=== PATIENT | female | born 1955 | race Caucasian/White ===

== ENCOUNTER → 2016-11-13 | Outpatient (CLI) | payer BC ==
[2016-11-13 08:07] LABS: Basophils # (A) 0.1 k/uL (0-0.2); Basophils % (A) 1 %; CH 30.9; Eosinophils # (A) 0.2 k/uL (0-0.7); Eosinophils % (A) 2 %; HCT 43.1 % (34.0-46.0); HDW 2.75; HGB 14.7 gm/dL (11.4-16.0); Luc # (Auto) 0.23; Luc % (Auto) 3; Lymphocytes # (A) 2.1 k/uL (1.0-4.8); Lymphocytes % (A) 28 %; MCH 30.3 pg (25.0-35.0); MCHC 34.2 g/dL (31.0-37.0); MCV 88.5 fL (80.0-100.0); Mean Platelet Volume 6.8; Monocytes # (A) 0.5 k/uL (0-1.0); Monocytes % (A) 6 %; Neutrophils # (A) 4.5 k/uL (1.3-7.7); Neutrophils % (A) 59 %; RBC 4.87 m/uL (3.80-5.40); RDW 12.9 % (11.5-15.5); WBC 7.6 k/uL (3.8-10.6); WBC (Perox) 7.68
[2016-11-13 08:43] LABS: ALT 59 U/L (9-52); AST 38 U/L (14-36); Alkaline Phosphatase 61 U/L (38-126); Anion Gap 13 mmol/L; Blood Urea Nitrogen 11 mg/dL (7-17); Calcium 9.9 mg/dL (8.4-10.2); Carbon Dioxide 27 mmol/L (22-30); Chloride 103 mmol/L (98-107); Cholesterol 198 mg/dL (<200); Glucose 107 mg/dL (74-99); HDL Cholesterol 70 mg/dL (40-60); Non-African American GFR(MDRD) >60 (>60 ml/min/1.73 sqM); Potassium 4.2 mmol/L (3.5-5.1); Sodium 143 mmol/L (137-145); Total Bilirubin 0.8 mg/dL (0.2-1.3); Total Protein 7.7 g/dL (6.3-8.2); Triglycerides 139 mg/dL (<150)
[2016-11-13 09:24] LABS: Hepatitis C Virus IgG Ab Negative (Negative); Hepatitis C Virus IgG Index 0.03
== END | disposition home or self-care (01) ==
LOC: LABWHC1 07:19
PROVIDERS: ATTEND Internal Medicine
DX: E78.5 Hyperlipidemia, unspecified (principal); E55.9 Vitamin D deficiency, unspecified; I10 Essential (primary) hypertension; Z13.9 Encounter for screening, unspecified
CPT/HCPCS: 36415; 80053; 80061; 82306; 85025; 86803

== ENCOUNTER → 2018-06-20 | Outpatient (CLI) | payer BC ==
--- NOTE | 2018-06-27 08:12 | MM ---
Reason for exam: screening (asymptomatic). Last mammogram was performed 2 years and 3 months ago. History: Patient is postmenopausal. Taking estrogen for 18 years 10 months. MG 3D Screening Mammo W/Cad Bilateral CC and MLO view(s) were taken. Prior study comparison: March 06, 2016, bilateral MG screening mammo w CAD. June 17, 2014, bilateral MG screening mammo w CAD. There are scattered fibroglandular densities. No suspicious abnormality. ASSESSMENT: Negative, BI-RAD 1 RECOMMENDATION: Routine screening mammogram of both breasts in 1 year.
== END | disposition home or self-care (01) ==
LOC: RADMAMWWP 07:06
PROVIDERS: ATTEND Internal Medicine
DX: Z12.31 Encounter for screening mammogram for malignant neoplasm of breast (principal)
CPT/HCPCS: 77063; 77067

== ENCOUNTER 2019-02-24 18:51 | Emergency (ER) | payer OTHER, BC ==
[2019-02-24 19:29] VITALS: BP 178/89; PULSE 77; RESP 18; TEMP 98.2
--- NOTE | 2019-02-24 19:44 | XR ---
EXAMINATION TYPE: XR hand complete LT DATE OF EXAM: 02/24/2019 COMPARISON: NONE HISTORY: Pain TECHNIQUE: 3 views FINDINGS: There is narrowing and spurring at the first carpometacarpal joint. IP joint spaces are renetta rly normal. There is no subluxation. There are no erosions. 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 No fracture seen. No sign of inflammato ry arthritis.
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
== END 2019-02-24 20:20 | disposition home or self-care (01) ==
LOC: EC 18:51
DX: S60.012A Contusion of left thumb without damage to nail, initial encounter (principal); M19.042 Primary osteoarthritis, left hand; Z91.09 Other allergy status, other than to drugs and biological substances; V89.2XXA Person injured in unspecified motor-vehicle accident, traffic, initial encounter; Y92.410 Unspecified street and highway as the place of occurrence of the external cause
CPT/HCPCS: 99284

== ENCOUNTER 2019-05-22 21:23 | Emergency (ER) | payer OTHER, BC ==
[2019-05-22 21:30] VITALS: BP 178/106; PULSE 85; RESP 16; TEMP 97.7
--- NOTE | 2019-05-22 22:06 | XR ---
EXAMINATION TYPE: XR cervical spine comp DATE OF EXAM: 05/22/2019 COMPARISON: NONE HISTORY: Neck pain TECHNIQUE: 5 views FINDINGS: There is anterior and posterior fusion surgery at C4 and C5 and C6 and C7. Vertebra have no rmal alignment. There are no cervical ribs. Skull base is intact. Atlantoaxial facet joint is intact. There is probably an old chip fracture of the spinous process of C7. IMPRESSION: Multilevel fusion surgery. No acute fracture seen.
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
--- NOTE | 2019-05-22 22:14 | XR ---
EXAMINATION TYPE: XR elbow complete RT DATE OF EXAM: 05/22/2019 COMPARISON: NONE HISTORY: Pain TECHNIQUE: 3 views FINDINGS: I see no fracture nor dislocation. Elbow joint spaces are normal. There is no sign of elbow joint effusion. IMPRESSION: Negative right elbow exam. No fracture.
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
== END 2019-05-22 22:32 | disposition home or self-care (01) ==
LOC: EC 21:23
DX: M54.2 Cervicalgia (principal); M79.645 Pain in left finger(s); M25.521 Pain in right elbow; Z91.048 Other nonmedicinal substance allergy status; Z98.890 Other specified postprocedural states; V59.49XA Driver of pick-up truck or van injured in collision with other motor vehicles in traffic accident, initial encounter; Y93.89 Activity, other specified; Y92.410 Unspecified street and highway as the place of occurrence of the external cause
CPT/HCPCS: 72050; 99284

== ENCOUNTER → 2019-11-13 | Outpatient (CLI) | payer BC ==
--- NOTE | 2019-11-17 11:24 | MM ---
Reason for exam: screening (asymptomatic). Last mammogram was performed 1 year and 5 months ago. History: Patient is postmenopausal. Taking estrogen for 20 years 10 months. Physical Findings: A clinical breast exam by your physician is recommended on an annual basis and results should be correlated with mammographic findings. MG 3D Screening Mammo W/Cad Bilateral CC and MLO view(s) were taken. Prior study comparison: June 20, 2018, bilateral MG 3d screening mammo w/cad. March 06, 2016, bilateral MG screening mammo w CAD. There are scattered fibroglandular densities. No suspicious abnormality. Left medial asymmetry appears similar to 2016 exam. ASSESSMENT: Benign, BI-RAD 2 RECOMMENDATION: Routine screening mammogram of both breasts in 1 year.
== END | disposition home or self-care (01) ==
LOC: RADMAMWWP 07:11
PROVIDERS: ATTEND Family Medicine
DX: Z12.31 Encounter for screening mammogram for malignant neoplasm of breast (principal)
CPT/HCPCS: 77063; 77067

== ENCOUNTER → 2021-02-20 | Outpatient (CLI) | payer BC ==
--- NOTE | 2021-02-22 09:09 | MM ---
Reason for exam: screening (asymptomatic). Last mammogram was performed 1 year and 3 months ago. History: Patient is postmenopausal. Took hormonal contraceptives for 12 years. Taking estrogen for 20 years 10 months. Physical Findings: A clinical breast exam by your physician is recommended on an annual basis and results should be correlated with mammographic findings. MG 3D Screening Mammo W/Cad Bilateral CC and MLO view(s) were taken. Prior study comparison: November 13, 2019, bilateral MG 3d screening mammo w/cad. June 20, 2018, bilateral MG 3d screening mammo w/cad. March 06, 2016, bilateral MG screening mammo w CAD. There are scattered fibroglandular densities. No significant changes when compared with prior studies. ASSESSMENT: Benign, BI-RAD 2 RECOMMENDATION: Routine screening mammogram of both breasts in 1 year.
== END | disposition home or self-care (01) ==
LOC: RADMAMWWP 07:39
PROVIDERS: ATTEND Family Medicine
DX: Z12.31 Encounter for screening mammogram for malignant neoplasm of breast (principal)
CPT/HCPCS: 77063; 77067

== ENCOUNTER → 2023-04-11 | Outpatient (CLI) | payer MEDICARE ==
[2023-04-11 12:22] LABS: INR 0.9 (<1.2); Partial Thromboplastin Time 25.6 sec (22.0-30.0); Prothrombin Time 10.1 sec (10.0-12.5)
[2023-04-11 16:21] LABS: ALT 24 U/L (8-44); AST 17 U/L (13-35); Albumin 4.5 d/dL (3.8-4.9); Albumin/Globulin Ratio 1.73 Ratio (1.60-3.17); Alkaline Phosphatase 62 U/L (41-126); Appearance,Urine Clear (Clear); BUN/Creat Ratio 15.29 Ratio (12.00-20.00); Bilirubin,Urine Negative (Negative); Blood Urea Nitrogen 10.7 mg/dL (9.0-27.0); Blood,Urine Negative (Negative); Calcium 10.3 mg/dL (8.7-10.3); Carbon Dioxide 27.5 mmol/L (21.6-31.8); Chloride 101 mmol/L (96-109); Color,Urine Yellow (Yellow); Globulin 2.6 d/dL (1.6-3.3); Glucose 91 mg/dL (70-110); Ketones,Urine Negative (Negative); Nitrite,Urine Negative (Negative); PH, Urine 7.5; Potassium 4.1 mmol/L (3.5-5.5); Sodium 139 mmol/L (135-145); Total Bilirubin 0.6 mg/dL (0.3-1.2); Total Protein 7.1 d/dL (6.2-8.2); Urobilinogen,Urine 0.2 E.U./DL
[2023-04-11 17:16] LABS: HCT 42.7 % (37.2-46.3); HGB 14.2 d/dL (12.0-15.0); MCH 30.3 pg (27.0-32.0); MCHC 33.3 d/dL (32.0-37.0); MCV 91.2 FL (80.0-97.0); Mean Platelet Volume 9.4 FL (9.5-12.2); NRBC Per 100 WBC 0 X 10*3/uL (0.00-0.01); Platelet Count 351 X 10*3/uL (140-440); RBC 4.68 X 10*6/uL (4.10-5.20); RDW 12.5 % (11.5-14.5); WBC 8.92 X 10*3/uL (4.50-10.00)
== END | disposition home or self-care (01) ==
LOC: LABPAT 11:21
PROVIDERS: ATTEND Orthopaedic Surgery
DX: Z01.812 Encounter for preprocedural laboratory examination (principal)
CPT/HCPCS: 80053; 81003; 85027; 85610; 85730; 86850; 86900; 86901; 87070

== ENCOUNTER 2023-04-22 05:35 | Observation (INO) | payer MEDICARE ==
[2023-04-19 10:51] VITALS: BMI 33.8
[~2023-04-22 05:35] MED LIST: ACETAMINOPHEN TAB 500 MG TAB PO PRN; GABAPENTIN 300 MG CAP PO PRN; MELOXICAM 7.5 MG TAB PO PRN; TRANEXAMIC 1,000 MG/100ML-NACL 1,000 MG in SALINE 1 100ML.BAG IVPB PRN
[2023-04-22] MEDS ORDERED: LACTATED RINGERS 1,000 ML IV ONE ×2 (06:22→08:00)
[2023-04-22] MEDS ORDERED: MIDAZOLAM 2 MG/2 ML VIAL IVP ONE (06:49)
[2023-04-22] MEDS ORDERED: fentaNYL (PF) 50 MCG/ML 2 ML AMP IVP ONE (06:49)
[2023-04-22] MEDS ORDERED: fentaNYL (PF) 50 MCG/ML 2 ML AMP ONE (06:57)
[2023-04-22] MEDS ORDERED: MIDAZOLAM 2 MG/2 ML VIAL ONE (06:57)
[2023-04-22] MEDS ORDERED: PHENYLEPHRINE 10 MG/ML 5 ML VIAL ONE (06:57)
[2023-04-22] MEDS ORDERED: LIDOCAINE 1% INJ 10MG/ML (20 ML MDV) ONE (06:57)
[2023-04-22] MEDS ORDERED: TRANEXAMIC 1,000 MG/100ML-NACL PREMIX BAG ONE (06:57)
[2023-04-22] MEDS ORDERED: ROPIVACAINE 5 MG/ML 30 ML VIAL ONE (06:57)
[2023-04-22] MEDS ORDERED: ePHEDrine 50 MG/ML 1 ML VIAL ONE (06:57)
[2023-04-22] MEDS ORDERED: PROPOFOL 10 MG/ML 20 ML VIAL IV ONE (06:57)
[2023-04-22] MEDS ORDERED: ceFAZolin 1,000 MG in SODIUM CHLORIDE 0.9% 1,000 ML IRRIGATION ONE (07:00)
[2023-04-22] MEDS ORDERED: ROPIVACAINE 5 MG/ML 30 ML VIAL MISCELLANE ONE ×2 (07:18→08:09)
[2023-04-22] MEDS ORDERED: droPERidol 5 MG/2 ML VIAL IVP ONE (07:40)
[2023-04-22] MEDS ORDERED: HYDROmorphone 0.5 MG/0.5 ML SYRINGE IVP PRN ×3 (07:40→08:45)
[2023-04-22] MEDS ORDERED: ONDANSETRON 4 MG/2 ML VIAL IVP ONE (07:40)
[2023-04-22] MEDS ORDERED: LIDOCAINE 1% (10MG/ML) FOR IV START INTRADERMA PRN (07:40)
--- NOTE | 2023-04-22 08:35 | XR ---
EXAMINATION TYPE: XR Hip Limited LT DATE OF EXAM: 04/22/2023 COMPARISON: NONE HISTORY: Postop TECHNIQUE: 4 view submitted. FINDINGS: There is postsurgical change compatible with left hip replacement surgery. IMPRESSION: 1. Postoperative change.
--- NOTE | 2023-04-22 08:37 | FL ---
EXAMINATION TYPE: FL guidance operating room DATE OF EXAM: 04/22/2023 HISTORY: Fluoroscopy time Total dose area product (DAP) in uGy*m?, mGy*cm? (or similar): 2.7707 IMPRESSION: 1. Fluoroscopy time.
[2023-04-22] MEDS ORDERED: NALOXONE 0.4 MG/ML 1 ML VIAL IV PRN (08:45)
--- NOTE | 2023-04-22 09:09 | P.OP ---
Date of Procedure: 04/22/23 Preoperative Diagnosis: Severe osteoarthritis left hip Postoperative Diagnosis: Severe osteoarthritis left hip Procedure(s) Performed: Left total hip arthroplasty with a direct anterior approach Implants: [employer] Polarstem standard size 2 with a collar [employer] R3, 3 hole hemispherical acetabular shell, 52 mm [employer] Reflection 6.5 mm cancellus screw, 20 mm 2 [employer] R3, XLPE 20 acetabular liner [employer] Oxinium femoral head 36 m, -3 All components were press-fit. The articulation is Oxinium on polyethylene. Anesthesia: spinal Surgeon: Ajay Torre Stock Digger #1: Mikayla Lake Estimated Blood Loss (ml): 400 Pathology: none sent Condition: stable Disposition: PACU Indications for Procedure: After failure of conservative treatment we discussed the surgical and nonsurgic al treatment options at length. Patient wishes to proceed with a total hip arthroplasty with a direct anterior approach. Complications specific to this procedure were discussed at length, including but not limited to infection, leg length discrepancy, dislocation, nerve injury, and fracture. Covid-19 was also discussed at length with the patient, and they are aware of the current policies and procedures. The patient was given the option of delaying surgery, but they elect to proceed knowing these risks. Patient is aware of all these complications and informed consent was obtained Operative Findings: The operative findings are consistent with severe arthritis of the left hip Description of Procedure: The patient was seen and evaluated in the preoperative area and the consent was reviewed. The operative site was marked with a skin marker. The patient verified the procedure and operative site. A VANCE block was placed by kira barriga in the preoperative area. The patient was then brought to the operating room and given preoperative antibiotics intravenously. 1 g of Tranexamic acid was also given intravenously. A spinal anesthetic was administered by the anesthesia department. The patient was then placed on the Ranson table with the bony prominences well-padded. The hip area was then prepped with a ChloraPrep solution and draped in the usual sterile fashion. A universal timeout was then performed, which confirmed the patient's name, surgical site, ALLERGIES, and procedure being performed on the consent. Next th e incision site was located at 1 cm distal and 4 cm lateral to the anterior superior iliac spine. The skin and subcutaneous tissues were sharply incised. Incision was carefully dissected down to the fascia overlying the tensor fascia pineda muscle. This fascia was then incised in line with the muscle fibers. Care was taken to stay laterally in order to avoid injuring the lateral femoral cutaneous nerve. Next, using blunt finger dissection, the tensor fascia pineda muscle was dissected off its investing fascia. The muscle was then carefully retracted laterally with a cobra retractor over the lateral neck of the femur. Next, the circumflex vessels were identified and cauterized using the Aquamantis device. The anterior hip capsule was then exposed. The capsule was then opened and an inverted T fashion. The retractors were then placed intracapsularly. The retractors were maintained intracapsular throughout the procedure. The proximal femur was then visualized. Fluoroscopic x-rays were then taken in order to evaluate the preoperative leg lengths. A small amount of traction was placed on the leg. The femoral neck was then osteotomized at the appropriate level above the lesser trochanter. A small wedge of bone was then removed from the remaining femoral head. Next, using a corkscrew the femoral head was removed from the acetabulum. On gross visual inspection, the femoral head had complete loss of articular cartilage and multiple periarticular osteophytes. The femoral head was then measured. Attention was then turned to the acetabulum. The acetabulum was exposed and any remaining labrum was excised. Sequential reaming of the acetabulum was performed using fluoroscopic guidance until there was a good bed of bleeding cancellus bone. When the appropriate size was reached, a trial was then placed. The position and fit of the trial was checked with fluoroscopy. The trial was then removed. Then, using fluoroscopic guidance, the final implant was impacted at 20 of anteversion and 40 of abduction, and fully seated in the acetabulum. 2 screws were then placed in the acetabulum. Again fluoroscopy was used to check position of the screws. Next, the liner was then impacted, with a 20 elevated liner located in the anterior superior quadrant. Component locking was confirmed. Attention was then directed to the femur. With the aid of the Ranson table, the femur was externally rotated to approximately 130, extended, and adducted under the opposite leg. A side hook was then placed under the proximal femur, and the side hook elevator was used to elevate the proximal femur while releasing the capsule. Retractors were then placed. A capsular release was performed, as well as a release of the conjoined tendon, which afforded excellent visualizati on of the proximal femur. Next, a box osteotome was used to lateralize the proximal femur. A hands assembler was then used to locate the femoral canal. Sequential broaching was then performed with appropriate size which afforded excellent fixation in the proximal femur. A trial was then placed with appropriate head and neck, and the hip was gently reduced with the aid of the Ranson table. Fluoroscopy was then used to check position of the components, as well as to evaluate the leg lengths and offset. The leg lengths and offset were measured as closely as possible to ensure stability of the hip. The hip was then gently dislocated and the trials were then removed. Final implants were then impacted and the hip was again reduced. Final fluoroscopic x-rays confirmed that the components were in anatomic position. The leg lengths and offset were measured and were found to coincide with the trial measurements. The hip was also taken through range of motion, and found to be stable. The hip was then copiously irrigated with antibiotic solution with pulsatile lavage. The hip was then irrigated with Irrisept solution. The soft tissues were then injected with a ropivacaine solution. A second dose of 1 g of Tranexamic acid was also given intravenously. The fascia was then closed with 2-0 strata fix suture. The subcutaneous tissue was closed with 3-0 Vicryl. The subcuticular tissue was closed with 3-0 strata fix suture. The skin was then closed with Exofin skin glue. After the glue and dried, and Optifoam silver impregnated dressing was applied. The patient was then transferred to the recovery room in stable condition. The multimedia production assistant KEYONA Zuniga was required due to the complexity of surgery, and the need for skilled neurosurgical physician assistant for positioning, draping, exposure, retraction, and closure of the wound.
--- NOTE | 2023-04-22 09:12 | XR ---
EXAMINATION TYPE: XR Hip Limited LT DATE OF EXAM: 04/22/2023 COMPARISON: NONE HISTORY: Postop left hip TECHNIQUE: One view submitted. FINDINGS: There is postsurgical change compatible hip replacement surgery. Soft tissue air and edema compatible with recent surgery. Vascular phleboliths. IMPRESSION: 1. Postoperative change. Appears in near-anatomic alignment.
[2023-04-22] MEDS: HYDROcodone/APAP 7.5-325MG 1 EACH TAB PO PRN ×2 (10:09→20:17)
--- NOTE | 2023-04-22 10:26 | P.ANPRN ---
Procedure Note - Anesthesia - Nerve Block Performed Left Edmond Single Time Out Performed: Yes ([id number]) Date of Procedure: 04/22/23 Procedure Start Time: 06:50 Procedure Stop Time: 06:53 Location of Patient: PreOp Indication: Acute Post-Operative Pain, Requested by Surgeon Specifically requested for management of pain by DrDionne: Nelson Garcia Sedation Type: Sedate with meaningful contact maintained Preparation: Sterile Prep Position: Supine Catheter: None Needle Types: Pajunk Needle Gauge: 21 Ultrasound used to visualize needle placement: Yes Ultrasound used to observe medication spread: Yes Injectate: 0.5% Ropivacaine (see comment for volume) (30cc) Blood Aspirated: No Pain Paresthesia on Injection Noted: No Resistance on Injection: Normal Image Stored and Saved: Yes Events: Uneventful and Well Tolerated
[2023-04-22] MEDS: LACTATED RINGERS 1,000 ML IV SCH (10:47)
--- NOTE | 2023-04-22 11:27 | P.CONS ---
History of Present Illness - Reason for Consult Consult date: 04/22/23 - History of Present Illness 67 year old F with PMH of hypertension and dyslipidemia presents to [facility] for elective surgery. She underwent left total hip arthroplasty with a direct anterior approach with Dr. Torre. [facility] has been consulted for medical management of this patient. Patient currently reports left hip pain, 9/10 in severity. Has not been able to urinate since surgery, no bowel movement, not passing gas. She has no other complaints. Pertinent positives and negatives as discussed in HPI, a complete review of systems was performed and all other systems are negative. General: non toxic, no distress, appears at stated age Derm: warm, dry Head: atraumatic, normocephalic, symmetric Eyes: EOMI, no lid lag, anicteric sclera Mouth: no lip lesion, mucus membranes moist Cardiovascular: S1S2 reg, no murmur Lungs: CTA bilateral, no rhonchi, no rales , no accessory muscle use Abdominal: soft, nontender to palpation, no guarding, no appreciable organomegaly, + BS, no sanford catheter Ext: no gross muscle atrophy, no edema, no contractures Neuro: no focal neuro deficits Psych: Alert, oriented, appropriate affect Hypertension Dyslipidemia Left total hip arthroplasty POD 0 Based on my assessment of this patient, this patient meets a moderate complexity level of care. Patient has a chronic diagnosis of hypertension and dyslipidemia. Hypertension: HCTZ 25 mg PO QD. Lisinopril 10 mg PO QD. Dyslipidemia: Crestor 20 mg PO QD. CODE STATUS: FULL CODE DVT Prophylaxis: ASA 325 mg PO BID Designated medical POA if patient is not able to make medical decisions for them selves: I have reviewed the following neuropsychology medical consultant notes: Surgical note. Anesthesia note. I have reviewed the results of the following tests: I have ordered the following tests: Agree with CBC. I have discussed the care of this patient with the following independent historian: I have independently interpreted the following test below: I have discussed the management of this patient with the following physician: Past Medical History Past Medical History: Hyperlipidemia, Hypertension Additional Past Medical History / Comment(s): vericose veins mo legs,steroid injection rt knee Feb 2023,Limited ROM of neck to the right. History of Any Multi-Drug Resistant Organisms: None Reported Past Surgical History: Section, Hysterectomy, Orthopedic Surgery, Tonsillectomy Additional Past Surgical History / Comment(s): neck surgery, cyst removed, Total left hip Past Anesthesia/Blood Transfusion Reactions: Previous Problems w/ Anesthesia, Family History of Problems w/ Anesthesia Additional Past Anesthesia/Blood Transfusion Reaction / Comm: b/p dropped during anterior cervical fusion and was transferred to ICU for 2-3 days-had shoulder surgergy after w/out problems. Limited ROM of neck to the right. mother had a hard time waking up from Anesthesia and PONV. no hx blood transfusion Past Psychological History: No Psychological Hx Reported Smoking Status: Never smoker Past Alcohol Use History: Occasional Past Drug Use History: None Reported - Past Family History Mother Family Medical History: Coronary Artery Disease (CAD), Deep Vein Thrombosis (DVT), Pulmonary Embolus Father Family Medical History: Cancer, Coronary Artery Disease (CAD) Medications and Allergies Home Medications Medication Instructions Recorded Confirmed Type Cholecalciferol [Vitamin D3 (25 50 mcg PO DAILY 04/19/23 04/19/23 History Mcg = 1000 Iu)] Cyanocobalamin (Vitamin B-12) 5,000 mcg PO DAILY 04/19/23 04/19/23 History [Vitamin B-12] Gabapentin 300 mg PO HS 04/19/23 04/19/23 History Multivitamins, Thera [Multivitamin 1 tab PO DAILY 04/19/23 04/19/23 History (formulary)] Rosuvastatin Calcium 20 mg PO HS 04/19/23 04/19/23 History hydroCHLOROthiazide 25 mg PO DAILY 04/19/23 04/19/23 History lisinopriL [Prinivil] 10 mg PO QAM 04/19/23 04/19/23 History Aspirin 325 mg PO BID #60 tab 04/22/23 Rx HYDROcodone/APAP 7.5-325MG [[place] 1 - 2 tab PO Q6H PRN #32 tab 04/22/23 Rx 7.5-325] Sennosides [Senokot] 2 tab PO DAILY PRN #60 tablet 04/22/23 Rx Allergies Allergy/AdvReac Type Severity Reaction Status Date / Time silk sutures Allergy internal Uncoded 04/22/23 05:48 sutures popping through skin/incision was redone Physical Exam Vitals: Vital Signs Temp Pulse Pulse Resp BP Pulse Ox 04/22/23 09:42 96.9 F L 69 18 97/62 97 04/22/23 09:21 73 16 114/59 99 04/22/23 09:06 68 16 109/57 100 04/22/23 08:51 76 16 97/55 100 04/22/23 08:36 97.8 F 81 14 101/53 100 04/22/23 06:54 95 16 140/68 100 04/22/23 06:02 97.3 F L 98 16 142/72 98 Intake and Output 04/21/23 04/22/23 04/22/23 22:59 06:59 14:59 Intake Total 300 1101 Output Total 400 Balance 300 701 Intake: IV 300 1101 Output: Estimated Blood Loss 400 Other: Weight 96.4 kg 96.4 kg
[2023-04-22] MEDS: SODIUM CHLORIDE 0.9% 1,000 ML IV SCH (14:59)
[2023-04-22] MEDS: HYDROmorphone 0.5 MG/0.5 ML SYRINGE IVP PRN (15:00)
[2023-04-22] MEDS: ONDANSETRON 4 MG/2 ML VIAL IVP PRN (15:07)
[2023-04-22] MEDS: ATORVASTATIN 40 MG TAB PO SCH (20:17)
[2023-04-22] MEDS: ASPIRIN 325 MG TAB PO SCH (20:17)
[2023-04-22] MEDS: SENNOSIDES-DOCUSATE SODIUM 1 EACH TAB PO SCH (20:17)
[2023-04-22] MEDS: GABAPENTIN 300 MG CAP PO SCH (20:17)
[2023-04-23] MEDS: HYDROcodone/APAP 7.5-325MG 1 EACH TAB PO PRN ×2 (05:44→20:55)
[2023-04-23] MEDS: SODIUM CHLORIDE 0.9% 1,000 ML IV SCH ×2 (05:46→13:04)
[2023-04-23] MEDS: LACTATED RINGERS 1,000 ML IV SCH (05:47)
[2023-04-23] MEDS: ASPIRIN 325 MG TAB PO SCH ×2 (07:32→20:49)
[2023-04-23] MEDS: MAGNESIUM HYDROXIDE 2,400 MG/30 ML CUP PO PRN (08:41)
[2023-04-23] MEDS: ONDANSETRON 4 MG/2 ML VIAL IVP PRN (08:41)
[2023-04-23] MEDS ORDERED: lisinopriL 10 MG TAB PO SCH (09:00)
[2023-04-23] MEDS ORDERED: hydroCHLOROthiazide 25 MG TAB PO SCH (09:00)
[2023-04-23 10:44] LABS: Basophils # (A) 0.03 X 10*3/uL (0.00-0.10); Basophils % (A) 0.4 %; Eosinophils # (A) 0.05 X 10*3/uL (0.04-0.35); Eosinophils % (A) 0.6 %; HCT 34.7 % (37.2-46.3); HGB 11.5 g/dL (12.0-15.0); Lymphocytes # (A) 2.24 X 10*3/uL (0.90-5.00); Lymphocytes % (A) 26.8 %; MCH 30.9 pg (27.0-32.0); MCHC 33.1 g/dL (32.0-37.0); MCV 93.3 FL (80.0-97.0); Monocytes # (A) 0.93 X 10*3/uL (0.20-1.00); Monocytes % (A) 11.1 %; NRBC Per 100 WBC 0 X 10*3/uL (0.00-0.01); Neutrophils # (A) 5.08 X 10*3/uL (1.80-7.70); Neutrophils % (A) 60.9 %; Platelet Count 223 X 10*3/uL (140-440); RBC 3.72 X 10*6/uL (4.10-5.20); WBC 8.35 X 10*3/uL (4.50-10.00)
--- NOTE | 2023-04-23 11:25 | P.PN ---
Subjective Progress Note Date: 04/23/23 This is a 67-year-old female who is status post left total hip arthroplasty with direct anterior approach. This is postoperative day #1 and patient is seen and evaluated at bedside with Dr. Ajay Torre. Patient states that she is feeling nauseous this morning, but was able to work with physical therapy today. Objective - Vital Signs Vital signs: Vital Signs Temp 98.3 F 04/23/23 06:57 Pulse 87 04/23/23 06:57 Resp 17 04/23/23 06:57 BP 101/66 04/23/23 06:57 Pulse Ox 93 L 04/23/23 06:57 FiO2 Intake & Output 04/22/23 04/23/23 04/23/23 18:59 06:59 18:59 Intake Total 1101 Output Total 400 Balance 701 Weight 96.4 kg Intake: IV 1101 Output: Estimated Blood Loss 400 Other: Voiding Method Bedside Commode # Voids 1 1 - Exam Vital signs are stable. Patient is in no acute distress and is alert and oriented 3. Calf is soft and nontender to palpation. Dressing is clean, dry, and intact. Patient has full foot and ankle motion without pain or difficulty. Sensation intact. Neurovascular status and circulatory status are intact. - Labs CBC & Chem 7: 04/23/23 06:23 Labs: Abnormal Lab Results - Last 24 Hours (Table) 04/23/23 Range/Units 06:23 RBC 3.72 L (4.10-5.20) X 10*6/uL Hgb 11.5 L (12.0-15.0) g/dL Hct 34.7 L (37.2-46.3) % Assessment and Plan (1) Osteoarthritis of left hip Current Visit: Yes Status: Acute Code(s): M16.12 - UNILATERAL PRIMARY OSTEOARTHRITIS, LEFT HIP SNOMED Code(s): 976830081519033 (2) S/P total left hip arthroplasty Current Visit: Yes Status: Acute Code(s): Z96.642 - PRESENCE OF LEFT ARTIFICIAL HIP JOINT SNOMED Code(s): 987199463040 Plan: Continue routine postop care and pain control. Continue anticoagulation with aspirin. Weightbearing as tolerated with a walker Leave dressing in place for 7 days. Appreciate input from internal medicine. Anticipate discharge home with homecare in the next 24-48 hours.
--- NOTE | 2023-04-23 12:27 | P.PN ---
Subjective Progress Note Date: 04/23/23 67 year old F with PMH of hypertension and dyslipidemia presents to [facility] for elective surgery. She underwent left total hip arthroplasty with a direct anterior approach with Dr. Torre. [facility] has been consulted for medical management of this patient. Patient currently reports left hip pain, 9/10 in severity. Has not been able to urinate since surgery, no bowel movement, not passing gas. She has no other complaints. 04/23 Patient was seen and examined. No acute events overnight. She was orthostatic yesterday when attempting to stand up, symptoms have resolved today. 2 episodes on NBNB N/V yesterday as well. Working with PT and OT. Currently on NS at 70 cc/hr. CBC Hg 11.5. General: non toxic, no distress, appears at stated age Derm: warm, dry Head: atraumatic, normocephalic, symmetric Eyes: EOMI, no lid lag, anicteric sclera Cardiovascular: S1S2 reg, no murmur Lungs: CTA bilateral, no rhonchi, no rales , no accessory muscle use Ext: no gross muscle atrophy, no edema, no contractures Neuro: no focal neuro deficits Psych: Alert, oriented, appropriate affect Hypertension Dyslipidemia Left total hip arthroplasty POD 1 Based on my assessment of this patient, this patient meets a moderate complexity level of care. Patient has a chronic diagnosis of hypertension and dyslipidemia. Hypertension: Hold HCTZ and Lisinopril until BP improves. IV hydration as above. Dyslipidemia: Crestor 20 mg PO QD. CODE STATUS: FULL CODE DVT Prophylaxis: ASA 325 mg PO BID Designated medical POA if patient is not able to make medical decisions for themselves: I have reviewed the following security and privacy consultant notes: Surgical note. I have reviewed the results of the following tests: CBC. I have ordered the following tests: I have discussed the care of this patient with the following independent historian: I have independently interpreted the following test below: I have discussed the management of this patient with the following physician: Objective - Vital Signs Vital signs: Vital Signs Temp 98.3 F 04/23/23 06:57 Pulse 87 04/23/23 06:57 Resp 17 04/23/23 06:57 BP 101/66 04/23/23 06:57 Pulse Ox 93 L 04/23/23 06:57 FiO2 Intake & Output 1104/23/23 04/23/23 18:59 06:59 18:59 Intake Total 1101 Output Total 400 Balance 701 Weight 96.4 kg Intake: IV 1101 Output: Estimated Blood Loss 400 Other: Voiding Method Bedside Commode # Voids 1 1 - Labs CBC & Chem 7: 04/23/23 06:23 Labs: Abnormal Lab Results - Last 24 Hours (Table) 04/23/23 Range/Units 06:23 RBC 3.72 L (4.10-5.20) X 10*6/uL Hgb 11.5 L (12.0-15.0) g/dL Hct 34.7 L (37.2-46.3) %
[2023-04-23] MEDS: HYDROmorphone 0.5 MG/0.5 ML SYRINGE IVP PRN ×2 (13:05→16:23)
[2023-04-23] MEDS: SENNOSIDES-DOCUSATE SODIUM 1 EACH TAB PO SCH (20:47)
[2023-04-23] MEDS: ATORVASTATIN 40 MG TAB PO SCH (20:47)
[2023-04-23] MEDS: GABAPENTIN 300 MG CAP PO SCH (20:48)
[2023-04-24] MEDS: HYDROcodone/APAP 7.5-325MG 1 EACH TAB PO PRN ×2 (03:48→11:40)
[2023-04-24] MEDS: SODIUM CHLORIDE 0.9% 1,000 ML IV SCH ×2 (05:23→09:06)
[2023-04-24] MEDS: ASPIRIN 325 MG TAB PO SCH (07:41)
[2023-04-24 08:01] VITALS: BP 120/62; PULSE 102; RESP 17; TEMP 98.8
[2023-04-24] MEDS: MAGNESIUM HYDROXIDE 2,400 MG/30 ML CUP PO PRN (09:06)
--- NOTE | 2023-04-24 09:58 | P.DS ---
Providers Date of admission: 04/23/23 13:38 Expected date of discharge: 04/24/23 Attending physician: Ajay Torre Consults: 04/22/23 08:45 Consult Physician Routine Consulting Provider: Demetrius Bragg Consult Reason/Comments: medical management Do you want consulting provider notified?: Yes Primary care physician: Jonathan Arteaga - Discharge Diagnosis(es) (1) Osteoarthritis of left hip Current Visit: Yes Status: Acute (2) S/P total left hip arthroplasty Current Visit: Yes Status: Acute Hospital Course: This is a 67-year-old female with known history of degenerative arthritis of the with left hip. The patient presented for evaluation as an outpatient. After discussion and consideration patient elects to proceed with total hip arthroplasty. The patient is seen preoperatively by Dr. Torre and medically cleared for surgery by their primary care physician. Patient is admitted to [facility] on 04/22/2023 for total hip arthroplasty. The procedure is performed without complication or sequelae. The patient is doing well postoperatively. Labs and vital signs are stable on day of discharge. On day of discharge patient's hip incision is healing well. There is minimal erythema. There is no drainage noted at this time. There is minimal soft tissue swelling to the hip and thigh. Patient has full foot and ankle motion without difficulty or pain. Calf is soft and nontender to palpation. Neurovascular status to the left lower extremity is intact. Patient is discharged home in good condition. Please see med rec for accurate list of home medications. Plan - Discharge Summary Discharge Rx Participant: No New Discharge Prescriptions: New Sennosides [Senokot] 2 tab PO DAILY PRN #60 tablet PRN Reason: Constipation Aspirin 325 mg PO BID #60 tab HYDROcodone/APAP 7.5-325MG [[place] 7.5-325] 1 - 2 tab PO Q6H PRN #32 tab PRN Reason: Pain No Action Rosuvastatin Calcium 20 mg PO HS Cyanocobalamin (Vitamin B-12) [Vitamin B-12] 5,000 mcg PO DAILY lisinopriL [Prinivil] 10 mg PO QAM hydroCHLOROthiazide 25 mg PO DAILY Gabapentin 300 mg PO HS Multivitamins, Thera [Multivitamin (formulary)] 1 tab PO DAILY Cholecalciferol [Vitamin D3 (25 Mcg = 1000 Iu)] 50 mcg PO DAILY Discharge Medication List Cholecalciferol [Vitamin D3 (25 Mcg = 1000 Iu)] 50 mcg PO DAILY 04/19/23 [History] Cyanocobalamin (Vitamin B-12) [Vitamin B-12] 5,000 mcg PO DAILY 04/19/23 [History] Gabapentin 300 mg PO HS 04/19/23 [History] Multivitamins, Thera [Multivitamin (formulary)] 1 tab PO DAILY 04/19/23 [History] Rosuvastatin Calcium 20 mg PO HS 04/19/23 [History] hydroCHLOROthiazide 25 mg PO DAILY 04/19/23 [History] lisinopriL [Prinivil] 10 mg PO QAM 04/19/23 [History] Aspirin 325 mg PO BID #60 tab 04/22/23 [Rx] HYDROcodone/APAP 7.5-325MG [[place] 7.5-325] 1 - 2 tab PO Q6H PRN #32 tab 04/22/23 [Rx] Sennosides [Senokot] 2 tab PO DAILY PRN #60 tablet 04/22/23 [Rx] Follow up Appointment(s)/Referral(s): [facility] [[facility]] - 1-2 Days ([facility] will call you to schedule your in home physical therapy visits. ) Ajay Torre DO [Doctor of Osteopathic Medicine] - 05/06/23 1:00 pm (With Mikayla RAND) Patient Instructions/Handouts: Anterior Hip Replacement (DC) Activity/Diet/Wound Care/Special Instructions: Weightbearing as tolerated with walker. Leave dressing intact. Dressing may be removed by home care nurse or by patient in 7 days. Then change dressing twice daily until follow up. May shower with initial dressing intact and after removal. If dressing become saturated, please remove. Please take aspirin 325mg twice daily for 30 days to prevent blood clots. Recommend use of compression stockings daily until follow up to help prevent swelling and blood clots. May remove at night before sleeping. Please follow-up with [facility] in 2 weeks and call with any questions or concerns, . Discharge Disposition: HOME WITH HOME HEALTH SERVICES
--- NOTE | 2023-04-24 10:57 | P.PN ---
Subjective Progress Note Date: 04/24/23 67 year old F with PMH of hypertension and dyslipidemia presents to [facility] for elective surgery. Today patient states that she was able to walk in the hallways. She stated that she is feeling much better. She is looking forward to going home. General: non toxic, no distress, appears at stated age Derm: warm, dry Head: atraumatic, normocephalic, symmetric Eyes: EOMI, no lid lag, anicteric sclera Cardiovascular: S1S2 reg, no murmur Lungs: CTA bilateral, no rhonchi, no rales , no accessory muscle use Ext: no gross muscle atrophy, no edema, no contractures, left hip bandages intact and dry Neuro: no focal neuro deficits Psych: Alert, oriented, appropriate affect Assessment Hypertension Dyslipidemia Left total hip arthroplasty POD 2 Plan Will hold patient's blood pressure meds as it is on the soft side Resume Crestor 20 mg by mouth daily Patient stable for discharge. I discussed with patient to check her blood pressure at home and if elevated then she can resume her blood pressure meds Objective - Vital Signs Vital signs: Vital Signs Temp 98.8 F 04/24/23 06:40 Pulse 102 H 04/24/23 06:40 Resp 17 04/24/23 06:40 BP 120/62 04/24/23 06:40 Pulse Ox 94 L 04/24/23 06:40 FiO2 Intake & Output 04/23/23 04/24/23 04/24/23 18:59 06:59 18:59 Intake Total 560 Balance 560 Intake: Intake, IV Titration 560 Amount Sodium Chloride 0.9% 1, 560 000 ml @ 70 mls/hr IV . Q49M21M [facility] Rx#:[id number] Other: Voiding Method Bedside Commode # Voids 1 1 - Labs CBC & Chem 7: 04/23/23 06:23
== END 2023-04-24 12:25 | disposition home health service (06) ==
LOC: OR 05:35 → 4SSUR 08:55 → OR 04-23 13:38
PROVIDERS: ADMIT Orthopaedic Surgery; ATTEND Orthopaedic Surgery
DX: M16.12 Unilateral primary osteoarthritis, left hip (principal); G89.18 Other acute postprocedural pain; I10 Essential (primary) hypertension; E78.5 Hyperlipidemia, unspecified; Z79.82 Long term (current) use of aspirin; Z79.899 Other long term (current) drug therapy
CPT/HCPCS: 96376 ×2; 96361 ×2; 96365; 96366 ×2; 96375; 97116; 97161; 97530 ×2; 97535 ×2; 97166; 64447; 85025; 73501; 27130; G0378 ×2; C1776; J2250; J0690 ×2; J2405 ×2; J2001; J3010; J2795; J2704; J1170 ×2; J2371